=== PATIENT | female | born 2000 | race Caucasian/White ===

== ENCOUNTER 2018-02-05 12:55 | Emergency (ER) | payer OTHER ==
[2018-02-05] MEDS ORDERED: AMOXIC-POT CLAV 875-125MG 1 EACH TAB PO STA (14:33)
--- NOTE | 2018-02-05 14:34 | ED ---
General Adult HPI - General Chief complaint: Skin/Abscess/Foreign Body Stated complaint: Suspected infection Time Seen by Provider: 02/05/18 14:09 Source: patient, RN notes reviewed Mode of arrival: ambulatory Limitations: no limitations - History of Present Illness Initial comments: 17-year-old female presents to the emergency department for a chief complaint of left breast pain. Patient states she had her nipples pierced about 2 weeks ago. She started to have pain in her left breast last night. Today she noticed her breast was red and tender. She states the redness has been spreading since this morning. Patient denies any streaking redness. Patient denies any pain in the arm. She states she patient denies any fevers or chills at home. Patient denies any discharge from the nipple or breast. Patient has not had any antibiotics for this condition. - Related Data Previous Rx's Medication Instructions Recorded Amoxicillin/Potassium Clav 1 tab PO Q12HR 10 Days tab 02/05/18 [Augmentin Xr 1,000-62.5 Tab] Allergies Allergy/AdvReac Type Severity Reaction Status Date / Time No Known Allergies Allergy Verified 02/05/18 13:30 Review of Systems ROS Statement: Those systems with pertinent positive or pertinent negative responses have been documented in the HPI. ROS Other: All systems not noted in ROS Statement are negative. Past Medical History Past Medical History: No Reported History History of Any Multi-Drug Resistant Organisms: None Reported Past Surgical History: No Surgical Hx Reported Past Psychological History: No Psychological Hx Reported Smoking Status: Current every day smoker Past Alcohol Use History: Occasional Past Drug Use History: None Reported General Exam Limitations: no limitations Eye exam: Present: normal appearance, PERRL, EOMI. Absent: scleral icterus, conjunctival injection, periorbital swelling ENT exam: Present: normal exam, mucous membranes moist Neck exam: Present: normal inspection. Absent: tenderness, meningismus, lymphadenopathy Respiratory exam: Present: normal lung sounds bilaterally. Absent: respiratory distress, wheezes, rales, rhonchi, stridor Cardiovascular Exam: Present: regular rate, normal rhythm, normal heart sounds. Absent: systolic murmur, diastolic murmur, rubs, gallop, clicks Skin exam: Absent: normal color (Patient has redness to the left breast with slight induration. No abscess visible. No draining visible. No streaking redness. Patient has bilateral nipple piercings.) Course Vital Signs 02/05/18 02/05/18 13:30 14:45 Temperature 98.6 F 98.7 F Pulse Rate 120 H 102 H Respiratory 18 20 Rate Blood Pressure 138/81 132/56 O2 Sat by Pulse 97 99 Oximetry Medical Decision Making - Medical Decision Making 17-year-old female presents to the emergency department for a chief complaint of left breast pain. Patient had her nipples pierced 2 weeks ago. She started to notice pain in the left breast yesterday and she noticed redness this morning. She states the redness has spread slightly since this morning. Patient denies any fevers or chills at home. Patient denies any drainage from the nipple. On exam left breast is erythematous and slightly indurated. No abscess noted. No drainage noted. Patient is afebrile. Patient will be started on Augmentin 1000 mg twice a day. She was given a dose in the emergency department to start the process. She will follow up with general surgery in 1-2 days. Patient was told to drop black line around the redness in monitor if it spreads pass this point. She is to return to the emergency Department if the redness continues to spread, if she develops fevers, or symptoms worsen at all. Disposition Clinical Impression: Cellulitis Disposition: HOME SELF-CARE Condition: Good Instructions: Cellulitis (ED) Additional Instructions: Please take antibiotics as directed. Please return to the emergency department if you have worsening symptoms, spreading redness, or have fevers. Please follow-up with general surgery in 1-2 days. Prescriptions: Amoxicillin/Potassium Clav [Augmentin Xr 1,000-62.5 Tab] 1 tab PO Q12HR 10 Days tab Referrals: None,Stated [Primary Care Provider] - 1-2 days Zhanna Mayfield DO [Doctor of Osteopathic Medicine] - 1-2 days Time of Disposition: 14:34
[2018-02-05 14:46] VITALS: BP 132/56; PULSE 102; RESP 20; TEMP 98.7
== END 2018-02-05 14:45 | disposition home or self-care (01) ==
LOC: EC 12:55
DX: N61.0 Mastitis without abscess (principal); F17.200 Nicotine dependence, unspecified, uncomplicated
CPT/HCPCS: 99283

== ENCOUNTER 2018-11-02 01:59 | Emergency (ER) | payer BC, OTHER ==
[2018-11-02 02:42] VITALS: BP 120/79; PULSE 95; RESP 20; TEMP 98.3
[2018-11-02] MEDS ORDERED: DIPH,PERTUS(ACELL)TETVAC-LF 0.5 ML VIAL IM ONE (02:43)
--- NOTE | 2018-11-02 03:06 | ED ---
Wound/Laceration HPI - General Source: patient, RN notes reviewed Mode of arrival: ambulatory Limitations: no limitations <Akbar Osullivan - Last Filed: 11/02/18 03:03> <Hilaria Vázquez - Last Filed: 11/06/18 02:18> - General Chief Complaint: Wound/Laceration Stated Complaint: Laceration-[facility] Time Seen by Provider: 11/02/18 02:43 - History of Present Illness Initial Comments: 18-year-old female presented emergency department for left ankle laceration. Patient states she was at work dropped a plate causing a laceration to her ankle. She does not know when her last tetanus was. She did thoroughly cleaned out with water, alcohol. Patient states that the bleeding has stopped but she feels that she may needs stitches. (Akbar Osullivan) - Related Data Home Medications Medication Instructions Recorded Confirmed No Known Home Medications 11/02/18 11/02/18 Allergies Allergy/AdvReac Type Severity Reaction Status Date / Time No Known Allergies Allergy Verified 02/05/18 13:30 Review of Systems ROS Other: All systems not noted in ROS Statement are negative. <Akbar Osullivan - Last Filed: 11/02/18 03:03> ROS Other: All systems not noted in ROS Statement are negative. <Hilaria Vázquez - Last Filed: 11/06/18 02:18> ROS Statement: Those systems with pertinent positive or pertinent negative responses have been documented in the HPI. Past Medical History Past Medical History: No Reported History History of Any Multi-Drug Resistant Organisms: None Reported Past Surgical History: No Surgical Hx Reported Past Psychological History: No Psychological Hx Reported Smoking Status: Current every day smoker Past Alcohol Use History: Occasional Past Drug Use History: None Reported <Akbar Osullivan - Last Filed: 11/02/18 03:03> General Exam Limitations: no limitations General appearance: alert, in no apparent distress Respiratory exam: Present: normal lung sounds bilaterally. Absent: respiratory distress, wheezes, rales, rhonchi, stridor Cardiovascular Exam: Present: regular rate, normal rhythm, normal heart sounds. Absent: systolic murmur, diastolic murmur, rubs, gallop, clicks Extremities exam: Present: other (Left lateral malleoli region there is a 2 cm laceration no tendon involvement there is no active bleeding patient's full range of motion neurovascular intact) <Akbar Osullivan - Last Filed: 11/02/18 03:03> Vital Signs 11/02/18 02:38 Temperature 98.3 F Pulse Rate 95 Respiratory 20 Rate Blood Pressure 120/79 O2 Sat by Pulse 100 Oximetry Procedures - Laceration Laceration #1 Consent Obtained: verbal consent Time Out Performed: Yes Indication: laceration Site: lower extremity (Left lateral malleolor region) Size (cm): 2 Description: linear Depth: simple, single layer Anesthetic Used: lidocaine 1%, without epi Anesthesia Technique: local infiltration Amount (mls): 4 Pre-repair: wound explored, irrigated extensively, deep structures intact Type of Sutures: nylon Size of Sutures: 4-0 Number of Sutures: 4 Technique: simple, interrupted Patient Tolerated Procedure: well, no complications <Akbar Osullivan - Last Filed: 11/02/18 03:03> Medical Decision Making <Akbar Osullivan - Last Filed: 11/02/18 03:03> <Hilaria Vázquez - Last Filed: 11/06/18 02:18> - Medical Decision Making 2-year-old presented for laceration. This was thoroughly cleaned, closed with sutures. Patient tolerated well. Tetanus was updated wound care instructions were given, return parameters were given. (Akbar Osullivan) I was available for consultation in the emergency department. The history and physical exam were done by the Midlevel Provider. Medical decision making was done by the Midlevel Provider. The Midlevel Provider did not contact me for this patient's care. I was not directly involved in this patient's care. (Hilaria Vázquez) Disposition Is patient prescribed a controlled substance at d/c from ED?: No Time of Disposition: 03:06 <Akbar Osullivan - Last Filed: 11/02/18 03:03> <Hilaria Vázquez - Last Filed: 11/06/18 02:18> Clinical Impression: Laceration of ankle Disposition: HOME SELF-CARE Condition: Stable Instructions: Care For Your Stitches (ED), Laceration (DC) Additional Instructions: Please return to the Emergency Department if symptoms worsen or any other concerns.. Have sutures removed in 10 days. Referrals: None,Stated [Primary Care Provider] - 1-2 days
== END 2018-11-02 03:22 | disposition home or self-care (01) ==
LOC: EC 01:59
DX: S91.012A Laceration without foreign body, left ankle, initial encounter (principal); F17.200 Nicotine dependence, unspecified, uncomplicated; Z23 Encounter for immunization; W20.8XXA Other cause of strike by thrown, projected or falling object, initial encounter; Y92.69 Other specified industrial and construction area as the place of occurrence of the external cause; Y99.0 Civilian activity done for income or pay
CPT/HCPCS: 12001; 90471; 90715; 99282

== ENCOUNTER 2020-04-19 20:49 | Emergency (ER) | payer BC, OTHER ==
[2020-04-19 21:00] VITALS: BP 131/86; PULSE 80; RESP 18; TEMP 98
--- NOTE | 2020-04-19 21:06 | ED ---
Lower Extremity Injury HPI - General Chief Complaint: Extremity Injury, Lower Stated Complaint: R Foot Injury Time Seen by Provider: 04/19/20 21:00 Source: patient Mode of arrival: wheelchair Limitations: no limitations - History of Present Illness Initial Comments: 20-year-old female presenting today for chief complaint of right foot pain. Patient states that just prior to arrival she was a blunting over her parents ponder when she came to the eye and she could not source of down and she struck the tree extending her right foot. Patient states she has midfoot pain and swelling. She states she took 3 ibuprofen which seemed to help the pain she states she is able to wiggle her toes however this hurts. Patient denies any numbness or loss of sensation to admits to swelling. Denies any bruising on the plantar aspect is very painful to weight-bear. Patient denies knee or hip pain. Denies injury to the head neck abdomen or chest. Patient denies additional complaints. Upon arrival patient appears uncomfortable but well. - Related Data Home Medications Medication Instructions Recorded Confirmed Ibuprofen [Motrin Ib] 600 mg PO ONCE PRN 04/19/20 04/19/20 Previous Rx's Medication Instructions Recorded HYDROcodone/APAP 7.5-325MG [[place] 1 tab PO Q4H PRN 3 Days #18 tab 04/19/20 7.5-325] Allergies Allergy/AdvReac Type Severity Reaction Status Date / Time No Known Allergies Allergy Verified 04/19/20 21:24 Review of Systems ROS Statement: Those systems with pertinent positive or pertinent negative responses have been documented in the HPI. ROS Other: All systems not noted in ROS Statement are negative. Past Medical History Past Medical History: No Reported History History of Any Multi-Drug Resistant Organisms: None Reported Past Surgical History: No Surgical Hx Reported Past Psychological History: No Psychological Hx Reported Smoking Status: Current every day smoker Past Alcohol Use History: Occasional Past Drug Use History: None Reported General Exam - General Exam Comments Initial Comments: General: The patient is awake and alert, in no distress, and does not appear acutely ill. Eye: Pupils are equal, round and reactive to light, extra-ocular movements are intact. No nystagmus. There is normal conjunctiva bilaterally. No signs of icterus. Musculoskeletal: E's swollen foot at the mid to forefoot. Some bruising developing. Soft and compressible tissue. No pain out of proportion. Patient can wiggle all 5 toes but with significant pain. No bruising plantar aspect. Normal ROM, no tenderness. Strength 5/5. Sensation intact proximal and distal to injury site. DP Radial pulses equal bilaterally 2+. Capillary refill < 3 seconds. Neurological: A&O x 3. CN II-XII intact grossly, There are no obvious motor or sensory deficits. Coordination appears grossly intact. Speech is normal. Skin: Skin is warm and dry and no rashes or lesions are noted. Psychiatric: Cooperative, appropriate mood & affect, normal judgment. Limitations: no limitations Course Vital Signs 04/19/20 20:55 Temperature 98 F Pulse Rate 80 Respiratory 18 Rate Blood Pressure 131/86 O2 Sat by Pulse 100 Oximetry Medical Decision Making - Medical Decision Making 20yo female presenting for foot injury. XR concerning for Lis Franc which was demonstrated on the CT. Patient is neurovascularly intact. Patient tissues compressible. Consulted Dr. Hammond reading CT report. Described PE. Recommended bulky silver, non weight bearing, pain control and elevation with follow-up in office within the next 2-3 days. Patient placed in a splint short leg right, bulky Silver prepadded synthetic. She was neurovascularly both prior to and after splinting. Discussed case attending provider Dr. Harper reviewed imaging studies is agreeable to care for discharge at this time. Disposition Clinical Impression: Lisfranc fracture, Foot pain, Right foot pain Disposition: HOME SELF-CARE Condition: Good Instructions (If sedation given, give patient instructions): Foot Fracture in Adults (ED), Foot Sprain (ED) Additional Instructions: Please use medication as discussed. Please follow-up with orthopedics in the next 2 days, ABSOLUTELY NO WEIGHT BEARING ON THE RIGHT FOOT, use crutches and keep splint in place until further orthopedic recommendations. Please return to emergency room if the symptoms increase or worsen or for any other concerns. Prescriptions: HYDROcodone/APAP 7.5-325MG [[place] 7.5-325] 1 tab PO Q4H PRN 3 Days #18 tab PRN Reason: Severe Pain Is patient prescribed a controlled substance at d/c from ED?: No Referrals: None,Stated [Primary Care Provider] - 1-2 days Asif Hammond MD [STAFF PHYSICIAN] - 1-2 days Time of Disposition: 22:53
--- NOTE | 2020-04-19 21:27 | XR ---
EXAMINATION TYPE: XR ankle complete RT, XR foot complete RT DATE OF EXAM: 04/19/2020 CLINICAL HISTORY: Pain. TECHNIQUE: Frontal, lateral and oblique images of the right ankle and foot are obtained. COMPARISON: None. FINDINGS: There is no acute fracture/dislocation evident in the right ankle. The ankle mortise appe ars within normal limits. The overlying soft tissue appears unremarkable. On oblique image there is acute nondisplaced oblique fracture through the proximal two thirds of the second metacarpal. The joint spaces in the right foot are preserved. Overlying soft tissue is unrem arkable. IMPRESSION: There is acute nondisplaced oblique fracture through proximal two thirds of the second m etacarpal suspicious for acute stress fracture.
[2020-04-19] MEDS ORDERED: HYDROcodone/APAP 7.5-325MG 1 EACH TAB PO ONE (21:50)
--- NOTE | 2020-04-19 22:09 | CT ---
EXAMINATION TYPE: CT foot RT wo con DATE OF EXAM: 04/19/2020 COMPARISON: Same day right foot and ankle x-rays HISTORY: Right foot pain and swelling. CT DLP: 276.6 mGycm Automated exposure control for dose reduction was used. FINDINGS: Corresponding to x-ray there is acute oblique minimally displaced fracture through the proximal two t hirds of the second metatarsal with extension to the proximal Lisfranc joint. There is lateral transl ation of base of second metatarsal relative to the middle cuneiform with comminuted fracture componen t showing some small fracture fragments. No significant dorsal or plantar displacement on sagittal im ages. No acute fracture in the base of first and third metatarsals. There is varus positioning and flexion of distal third through fifth toes. Muscle bulk preserved. Hin dfoot articulations maintained. Overlying soft tissue unremarkable. IMPRESSION: Confirmation of acute nondisplaced fracture proximal two thirds of second metatarsal with Lisfranc joint extension and comminuted component with few tiny fracture fragments and lateral separ ation second metatarsal from middle cuneiform.
[2020-04-19] MEDS ORDERED: MORPHINE SULFATE 4 MG/ML SYRINGE IM STA (22:47)
== END 2020-04-19 23:15 | disposition home or self-care (01) ==
LOC: EC 20:49
DX: S92.324A Nondisplaced fracture of second metatarsal bone, right foot, initial encounter for closed fracture (principal); F17.200 Nicotine dependence, unspecified, uncomplicated; W18.09XA Striking against other object with subsequent fall, initial encounter; Y93.89 Activity, other specified
CPT/HCPCS: 73610; 73630; 73700; 99284; 96372; 29515; J2270

== ENCOUNTER 2020-06-24 21:13 | Emergency (ER) | payer BC ==
[2020-06-24 21:22] VITALS: BP 128/73; PULSE 117; RESP 16; TEMP 97.8
--- NOTE | 2020-06-24 21:55 | ED ---
Extremity Problem HPI - General Chief complaint: Extremity Problem,Nontraumatic Stated complaint: R Heel Cast Issues Time Seen by Provider: 06/24/20 21:27 Source: patient Mode of arrival: ambulatory Limitations: no limitations - History of Present Illness Initial comments: Patient is a 20-year-old female presenting to emergency Department with a chief complaint of a wet cast. Patient states she's had a cast in the right lower extremity for about 3 weeks now. Patient states she is set to see her greenhouse specialist in 3 days. States today she was in the pool and got the cast wet. Patient states her skin is getting slightly and she was concerned for an infection. She denies any fever or chills at home. States this occurred about one hour prior to arrival. Denies any pain at the cast. - Related Data Home Medications Medication Instructions Recorded Confirmed Ibuprofen [Motrin Ib] 600 mg PO ONCE PRN 04/19/20 04/19/20 Previous Rx's Medication Instructions Recorded HYDROcodone/APAP 7.5-325MG [[place] 1 tab PO Q4H PRN 3 Days #18 tab 04/19/20 7.5-325] Allergies Allergy/AdvReac Type Severity Reaction Status Date / Time No Known Allergies Allergy Verified 06/24/20 21:22 Review of Systems ROS Statement: Those systems with pertinent positive or pertinent negative responses have been documented in the HPI. ROS Other: All systems not noted in ROS Statement are negative. Past Medical History Past Medical History: No Reported History History of Any Multi-Drug Resistant Organisms: None Reported Past Surgical History: Orthopedic Surgery Additional Past Surgical History / Comment(s): right foot Past Psychological History: No Psychological Hx Reported Smoking Status: Current every day smoker Past Alcohol Use History: Occasional Past Drug Use History: None Reported General Exam Limitations: no limitations General appearance: alert, in no apparent distress Head exam: Present: atraumatic, normocephalic, normal inspection Eye exam: Present: normal appearance, PERRL, EOMI Pupils: Present: normal accommodation ENT exam: Present: normal exam, normal oropharynx, mucous membranes moist Neck exam: Present: normal inspection, full ROM. Absent: tenderness Respiratory exam: Present: normal lung sounds bilaterally. Absent: respiratory distress, wheezes Cardiovascular Exam: Present: regular rate, normal rhythm, normal heart sounds Extremities exam: Present: full ROM, normal capillary refill, other (+2 dorsalis pedis and posterior tibialis after removal of cast). Absent: normal inspection (wet cast in the right lower extremity.), tenderness Back exam: Present: normal inspection, full ROM Neurological exam: Present: alert, oriented X3 Psychiatric exam: Present: normal affect, normal mood Skin exam: Present: warm, dry, intact, normal color Course Vital Signs 06/24/20 06/24/20 21:16 22:26 Temperature 97.8 F 97.8 F Pulse Rate 117 H 117 H Respiratory 16 16 Rate Blood Pressure 128/73 128/73 O2 Sat by Pulse 100 100 Oximetry Procedures - Cast Removal Reason for procedure: wet Cut Saw used: Yes Cast procedure: removal Post Removal Neuro Exam: intact Post Removal Vascular Exam: intact Patient Tolerated Procedure: well, no complications - Orthopedic Splinting/Casting Injury #1 Side: right Lower Extremity Injury Location: short leg Lower Extremity Immobilizer: posterior splint, Mars wrap, synthetic pre-padded splint Medical Decision Making - Medical Decision Making Patient is a 18-year-old female presenting to the emergency department with a chief complaint of a wet cast. I spoke with Dr.Kirk Bermeo who is an greenhouse specialist that was try on baster from [facility] which is where the patient is seen. He advised me to cut the cast and apply posterior splint with extra padding and about. Absolutely no weightbearing. I removed the cast with a saw. Patient tolerated procedure well. She was otherwise neurovascularly intact, with no signs of infection.. Posterior splint applied with extra padding on the bottom. Patient already has crutches at home and did not want any from here. Return parameters were thoroughly discussed with patient is understanding and agreeable. Case discussed with physician. Disposition Clinical Impression: Orthopedic cast removal, Cast in place on lower extremity Disposition: HOME SELF-CARE Condition: Stable Additional Instructions: Follow-up with the orthopedic doctor. Return to emergency department if symptoms worsen. Is patient prescribed a controlled substance at d/c from ED?: No Referrals: None,Stated [Primary Care Provider] - 1-2 days Time of Disposition: 22:22
== END 2020-06-24 22:29 | disposition home or self-care (01) ==
LOC: EC 21:13
DX: Z47.89 Encounter for other orthopedic aftercare (principal); F17.200 Nicotine dependence, unspecified, uncomplicated
CPT/HCPCS: 29515; 99282